=== PATIENT | male | born 1965 | race Caucasian/White ===

== ENCOUNTER 2016-11-13 14:11 | Emergency (ER) | payer OTHER ==
--- OUTSIDE RECORDS SUMMARY | 2016-11-13 14:52 | XMS REPORT | Continuity of Care Document ---
:1965 Author Organization [facility] ([facility]) [place] [address] Phone [phone] Care Team Providers Name Role Phone Cristal Zuniga Primary Care Provider [phone] Source Comments This disclosure is being made pursuant to the Care Everywhere program, applicable federal and state laws, and may not contain all informaitonavailable regarding this patient.[facility] ([facility]) Active Allergies and Adverse Reactions Allergen Noted Date Severity Reactions Comments Cefaclor 07/19/2011 Angioedema Gentamicin 02/27/2011 Blisters Was eyedrops for conjunctivitis Current Medications Prescription Sig. Disp. Refills Start End Date Status Date GLIMEPIRIDE PO Take by mouth. Active ibuprofen 800 mg Take 800 mg by mouth Active tablet every 8 hours as needed. CYCLOBENZAPRINE HCL Take by mouth. Active (FLEXERIL PO) amLODIPine 10 mg Take 1 Tab by mouth 30 Tab 5 Active tablet daily. Indications: 3 HYPERTENSION lisinopril 20 mg Take 1 Tab by mouth 2 60 Tab 5 Active tablet times daily. Indications: 3 HYPERTENSION metFORMIN 500 mg Take 2 Tabs by mouth 2 120 Tab 5 Active tablet times daily. Indications: 3 TYPE 2 DIABETES MELLITUS metoPROLol tartrate Take 0.5 Tabs by mouth 2 30 Tab 5 Active 25 mg tablet times daily. Indications: 3 HYPERTENSION pravastatin 40 mg Take 1 Tab by mouth every 30 Tab 5 Active tablet evening. Indications: 3 HYPERCHOLESTEROLEMIA sulfaSALAzine 500 mg Take 3 Tabs by mouth 3 270 Tab 5 Active tablet times daily. Indications: 3 ULCERATIVE COLITIS Active Problems Problem Noted Date Morbid obesity 02/03/2013 Mixed hyperlipidemia 09/11/2011 Headache(784.0) 06/04/2011 Screening for unspecified condition 06/04/2011 Ulcerative colitis 02/27/2011 Unspecified essential hypertension 02/27/2011 Type II or unspecified type diabetes mellitus without mention of 02/27/2011 complication, uncontrolled Back pain 02/27/2011 Immunizations Name Dates Previously Given Next Due Pneumococcal Polysaccharide, PPSV23 (Pneumovax 23) 02/27/2011 Tdap 02/27/2011 Social History Tobacco Use Types Packs/Day Years Used Date Never Smoker Smokeless Tobacco: Never Used Alcohol Use Drinks/Week oz/Week Comments No Last Filed Vital Signs Vital Sign Reading Time Taken Blood Pressure 172/98 02/03/2013 8:34 AM CDT Pulse 68 02/03/2013 8:34 AM CDT Temperature 36.7 C (98.1 F) 02/03/2013 8:34 AM CDT Respiratory Rate 16 07/19/2011 12:03 PM [facility] Height 1.842 m (6' 0.5") 09/10/2011 11:17 AM [facility]ATE Weight 154.132 kg (339 lb 12.8 oz) 02/03/2013 8:34 AM CDT Body Mass Index 45.43 02/03/2013 8:34 AM CDT Oxygen Saturation 97% 07/19/2011 12:03 PM [facility] ASSOCIATE Plan of Care Health Maintenance Due Date Last Done Comments Hepatitis B Vaccine (1 of - 1965 Primary Series) MMR Vaccine 1983 DIABETIC: Retinal Eye Exam 06/04/2011 DIABETIC: Foot Exam 06/04/2012 06/04/2011, 06/04/2011, 06/04/2011 DIABETIC: Hemoglobin A1C 08/06/2013 02/03/2013, Additional history exists 09/10/2011, 06/04/2011 DIABETIC: Cholesterol 02/03/2014 02/03/2013, Additional history exists 09/10/2011, 06/04/2011 Diabetic: Hdl 02/03/2014 02/03/2013, Additional history exists 09/10/2011, 06/04/2011 Diabetic: Ldl 02/03/2014 02/03/2013, Additional history exists 09/10/2011, 06/04/2011 DIABETIC: Microalbumin 02/03/2014 02/03/2013, 09/10/2011, 02/27/2011 DIABETIC: Triglycerides 02/03/2014 02/03/2013, Additional history exists 09/10/2011, 06/04/2011 Influenza Vaccine: Seasonal 03/04/2016 (#1) Td Vaccine 02/27/2021 02/27/2011 Pneumococcal Vaccine Completed 02/27/2011 Tdap Vaccine Completed 02/27/2011 Results from Last 3 Months Not on file
--- NOTE | 2016-11-13 15:27 | ERNOTE ---
Medical Problem HPI - Narrative Date of Service: 11/13/16 - General Chief Complaint: General Assessment Time Seen by Provider: 11/13/16 14:40 Source: patient Exam Limitations: no limitations - Immun/Allergies/Home Medications Immunizations: IMMUNIZATION HX History of Influenza Vaccine No Hx Pneumococcal Vaccination No Allergies/Adverse Reactions: Allergies cefaclor [From Ceclor] Allergy (Verified 11/13/16 14:20) gentamicin [Gentamicin] Allergy (Verified 11/13/16 14:20) salicylates [Salicylate] Allergy (Verified 11/13/16 14:20) Home Medications: HOME MEDICATIONS Atorvastatin Calcium [Lipitor] 20 mg PO DAILY 11/13/16 [Last Taken Unknown] Gabapentin [Neurontin] 600 mg PO QID 11/13/16 [Last Taken Unknown] Glimepiride [Amaryl] 4 mg PO BID@0700,1700 11/13/16 [Last Taken Unknown] HYDROcodone/ACETAMINOPHEN [Sturgeon 5-325 Tablet] 1 tab PO Q6H PRN 11/13/16 [Last Taken Unknown] Lisinopril/Hydrochlorothiazide [Lisinopril-Hctz 20-12.5 mg Tab] 1 each PO BID [Last Taken Unknown] Loratadine [Claritin] 10 mg PO DAILY #30 tab 11/13/16 [Last Taken Unknown] Metoprolol Tartrate [Lopressor] 50 mg PO DAILY 11/13/16 [Last Taken Unknown] Naproxen [Naprosyn] 250 mg PO DAILY 11/13/16 [Last Taken Unknown] SUMAtriptan SUCCINATE [Imitrex] 50 mg PO Q2H PRN 11/13/16 [Last Taken Unknown] amLODIPine BESYLATE [Norvasc] 10 mg PO DAILY 11/13/16 [Last Taken Unknown] metFORMIN HCL [Glucophage] 500 mg PO DAILY #20 tablet 11/13/16 [Last Taken Unknown] metFORMIN HCL [Metformin HCl ER] 1,000 mg PO BID 11/13/16 [Last Taken Unknown] - History of Present History Narrative: Pt. comes in with c/o headache and increased blood glucose for three days. Pt. states that blood sugar after eating was 311 and 285 after taking his medications this morning and states that it usually runs 170 at its peak. Pt. states that he ate toast for breakfast but usually eats bread and he states that his headache is improved and tolerable but that it was never accompanied by vision changes or NVD. Review of Systems - Review of Systems Constitutional: Present: no symptoms reported. Absent: recent illness, fever, chills, weakness, fatigue, malaise EYE: Present: no symptoms reported ENT: Present: no symptoms reported Respiratory: Present: no symptoms reported. Absent: shortness of breath, cough , wheezing Cardiology: Present: no symptoms reported. Absent: chest pain, edema Gastrointestinal/Abdominal: Present: no symptoms reported. Absent: nausea, vomiting, diarrhea, abdominal pain Genitourinary: Present: no symptoms reported Musculoskeletal: Present: no symptoms reported. Absent: back pain, joint pain Skin: Present: no symptoms reported Neurological: Present: headache All Other Systems: All systems neg except as marked - Patient's Past Medical History Patient History - Medical: Diabetes Type 2 Patient History - Cardiac/Respiratory: Hypertension, Hyperlipidemia Patient History - Cancer: No Hx of Cancer Patient History - Surgical Procedures: No surgical history Patient History - Other: None - Social History Living Situations: home Psych History: No pertinent hx Alcohol Use: none Drug Use: none - Immunizations Hx Pneumococcal Vaccination: No History of Influenza Vaccine: No Physical Exam - Physical Exam General Appearance: Present: wd/wn, alert, no apparent distress Eye Exam: Normal inspection: bilateral, PERRL: bilateral, EOMI: bilateral Ears, Nose, Throat: Present: abnormal TM (R) - effusion without erythema, sinus pain/drainage - PND, other - pale boggy nares. Absent: abnormal TM (L), pharyngeal erythema, pharyngeal swelling, tonsillar exudate Neck: Present: normal inspection, nontender. Absent: lymphadenopathy (R), lymphadenopathy (L) Respiratory: Present: no respiratory distress, normal breath sounds, no accessory muscle use, chest nontender, lungs clear Cardiovascular/Chest: Present: regular rate, rhythm, no murmur, normal peripheral pulses Gastrointestinal/Abdominal: Present: normal bowel sounds, nontender, nondistended, soft, no organomegaly Back Exam: Present: normal inspection, normal range of motion, no CVA tenderness , no vertebral tenderness Extremity Exam: Present: normal inspection, non-tender, normal range of motion, no edema Neurological Exam: Present: alert, oriented, normal mood/affect, no motor/ sensory deficits, 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 Absent: pallor, skin rash ED Progress - Date and Time Seen: Date and Time: 11/13/16 15:26 As I was assessing pt. he noted that he has chronic sinus and throat problems. Feel that pt. likely has undiagnosed allergic rhinitis. 11/13/16 17:49 Pt. blood glucose is improving with fluid so believe that he is likely not in danger of DKA at this time but needs to have his medications adjusted to prevent further complications. Will increase amaryl to 6mg in the morning per Dr Gatica recommendations and send pt. 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 Referrals: Estela Weinstein DO [Primary Care Provider] - Prescriptions: Loratadine [Claritin] 10 mg PO DAILY #30 tab metFORMIN HCL [Glucophage] 500 mg PO DAILY #20 tablet
[2016-11-13 15:37] LABS: Urine Bilirubin Negative (NEGATIVE); Urine Blood Negative /ul (NEGATIVE); Urine Ketone 5 mg/dL (NEGATIVE); Urine Nitrite Negative (NEGATIVE); Urine Protein 30 mg/dL (NEGATIVE); Urine Specific Gravity >=1.030 SP.GR. (1.005-1.030); Urine Urobilinogen Normal (NORMAL)
[2016-11-13 15:43] LABS: Urine Appearance Clear; Urine Bacteria None Seen; Urine Color Yellow; Urine RBC None Seen /hpf (0-5); Urine WBC None Seen /hpf (0-5)
[2016-11-13 15:45] LABS: Hematocrit 42.9 % (42.0-52.0); Hemoglobin 15.1 gm/dL (13.5-18.0); Mean Corpuscular Hemoglobin 28.2 pg (27-31); Mean Corpuscular Hgb Conc 35.2 g/dl (32-36); Mean Platelet Volume 10.7 fl (6.0-9.5); Neutrophil # 4.4 K/mm3 (1.3-6.0); Neutrophil % 61.3 % (42-75.0); Platelet Count 213 K/mm3 (150-450); Red Blood Count 5.36 M/mm3 (4.7-6.0); Red Cell Distribution Width 12.7 % (11.5-14.0); White Blood Count 7.2 K/mm3 (4.0-10.5)
[2016-11-13] MEDS ORDERED: NORMAL SALINE 1,000 ML IV ONE ×2 (15:47→17:34)
[2016-11-13 15:48] LABS: ALT 27 U/L (19-67); AST 13 U/L (0-48); Albumin * 4.2 gm/dl (3.4-5.0); Alkaline Phosphatase * 88 U/L (50-170); Anion Gap 15.3 mmol/L (6.8-13.8); BUN/Creatinine Ratio 18.5 (9.0-21.6); Bilirubin, Total 0.5 mg/dL (0.0-1.1); Blood Urea Nitrogen 17 mg/dL (6-23); Ca. Corrected For Albumin 8.2 mg/dL (8.4-10.2); Calcium * 8.7 mg/dL (7.9-10.9); Carbon Dioxide 27.2 mmol/L (24-32.6); Chloride 100 mmol/L (97-106); Glucose * 271 mg/dL (70-110); Potassium 3.5 mmol/L (3.4-4.6); Sodium 139 mmol/L (132-142); Total Protein 7.6 gm/dL (6.2-8.2)
[2016-11-13 15:58] LABS: Hemoglobin A1C 10.2 % (4.00-6.0)
[2016-11-13 18:40] VITALS: BP 167/86
== END 2016-11-13 18:40 | disposition home or self-care (01) ==
LOC: ER 14:11
DX: R82.4 Acetonuria (principal); E11.65 Type 2 diabetes mellitus with hyperglycemia; E78.5 Hyperlipidemia, unspecified; I10 Essential (primary) hypertension